=== PATIENT | male | born 1955 | race Caucasian/White ===

== ENCOUNTER 2017-10-07 05:46 | Day surgery (SDC) | payer OTHER ==
[~2017-10-07 05:46] MED LIST: AMBIEN10 MG PO; CLONAZEPAM0.5 MG PO; GABAPENTIN400 MG PO; PAXIL10 MG/5 ML PO; RISPERDAL2 MG PO
== END 2017-10-07 14:05 | disposition home or self-care (01) ==
LOC: CIR.AMB 05:46
DX: D36.12 Benign neoplasm of peripheral nerves and autonomic nervous system, upper limb, including shoulder (principal); G56.01 Carpal tunnel syndrome, right upper limb